=== PATIENT | female | born 1955 | race Caucasian/White ===

== ENCOUNTER 2016-07-28 11:41 | Emergency (ER) | payer OTHER ==
[2016-07-28] MEDS ORDERED: ACETAMINOPHEN 325 MG TABLET PO ONE (11:44)
--- NOTE | 2016-07-28 11:44 | ER Document Report ---
ED Medical Screen (RME) - General Stated Complaint: FLU LIKE SYMPTOMS Notes: Fever cough muscle aches since . I greeted and performed a rapid initial assessment of this patient. Comprehensive ED assessment and evaluation of the patient, analysis of test results and completion of the medical decision making process will be conducted by additional ED providers. - Related Data Allergies/Adverse Reactions: iodine [Iodine] Allergy (Verified 05/03/13 05:31) cefaclor [From Ceclor] Adverse Reaction (Verified 05/03/13 05:31) Past Medical History Neurological Medical History: Reports: Hx Migraine Psychiatric Medical History: Reports: Hx Depression
--- NOTE | 2016-07-28 12:35 | ER Document Report ---
ED Flu Like - General Chief Complaint: Flu Symptoms Stated Complaint: FLU LIKE SYMPTOMS Time seen by provider: 12:28 Mode of Arrival: Ambulatory Information source: Patient TRAVEL OUTSIDE OF THE [place] IN LAST 30 DAYS: No - HPI Patient complains to provider of: flu-like symptoms Onset: Other - pt. with 2 day h/o fever, generalized athralgias and myalgias, sore throat , and nausea with occasional cough - Related Data Allergies/Adverse Reactions: iodine [Iodine] Allergy (Verified 07/28/16 11:46) cefaclor [From Ceclor] Adverse Reaction (Verified 07/28/16 11:46) Past Medical History - General Information source: Patient - Social History Smoking Status: Current Every Day Smoker Cigarette use (# per day): Yes Chew tobacco use (# tins/day): No Frequency of alcohol use: None Drug Abuse: None Family History: Reviewed & Not Pertinent Patient has suicidal ideation: No Patient has homicidal ideation: No Neurological Medical History: Reports: Hx Migraine Renal/ Medical History: Denies: Hx Peritoneal Dialysis Psychiatric Medical History: Reports: Hx Depression Review of Systems - Review of Systems Constitutional: See HPI, Fever EENT: See HPI, Throat pain Cardiovascular: No symptoms reported Respiratory: See HPI, Cough Gastrointestinal: See HPI, Nausea -: Yes All other systems reviewed and negative Physical Exam - Vital signs Vitals: Temp Pulse Resp BP Pulse Ox 99.5 F 86 20 96/74 L 94 07/28/16 11:48 07/28/16 11:48 07/28/16 11:48 07/28/16 11:48 07/28/16 11:48 - General General appearance: Appears well In distress: None - HEENT Pharynx: Normal Neck: Normal - Respiratory Respiratory status: No respiratory distress Chest status: Nontender Breath sounds: Normal Chest palpation: Normal - Cardiovascular Rhythm: Regular Heart sounds: Normal auscultation - Abdominal Inspection: Normal Tenderness: Nontender Course - Vital Signs Vital signs: Temp Pulse Resp BP Pulse Ox 99.5 F 86 20 96/74 L 94 07/28/16 11:48 07/28/16 11:48 07/28/16 11:48 07/28/16 11:48 07/28/16 11:48 Discharge - Discharge Clinical Impression: Viral syndrome Condition: Stable Disposition: HOME, SELF-CARE Instructions: Acetaminophen, Fever ([facility]), Viral Syndrome ([facility]) Additional Instructions: rest, take meds as prescribed, return if worse Prescriptions: Hydrocodone/Chlorphen P-Stirex [Tussionex Pennkinetic Susp] 115 ml PO BID #100 wilton.er.12h Oseltamivir Phosphate [Tamiflu 75 mg Capsule] 75 mg PO BID #10 capsule Promethazine HCl [Phenergan 25 mg Tablet] 25 - 50 mg PO ASDIR PRN #12 tablet PRN Reason: Referrals: ALMA DELIA DANIEL MD [ACTIVE STAFF] - Follow up as needed
[2016-07-28 12:55] VITALS: BP 92/49
== END 2016-07-28 12:40 | disposition home or self-care (01) ==
LOC: ER 11:41
DX: R50.9 Fever, unspecified (principal); B34.9 Viral infection, unspecified; M79.1 Myalgia; R11.0 Nausea; R05 Cough; F17.210 Nicotine dependence, cigarettes, uncomplicated
CPT/HCPCS: 87804; 99283

== ENCOUNTER 2017-10-28 13:20 | Emergency (ER) | payer MEDICARE ==
[2017-10-28] MEDS ORDERED: ASPIRIN 325 MG TABLET PO ONE (14:16)
--- NOTE | 2017-10-28 14:25 | ER Document Report ---
ED Medical Screen (RME) - General Chief Complaint: Chest Pain Stated Complaint: CHEST PAIN Time Seen by Provider: 10/28/17 14:15 Notes: Patient states she woke up this morning with low back pain and she now has shortness of breath and heavy chest pressure. She denies any previous history of cardiac pathology. TRAVEL OUTSIDE OF THE [place] IN LAST 30 DAYS: No - Related Data Allergies/Adverse Reactions: iodine [Iodine] Allergy (Verified 07/28/16 11:46) cefaclor [From Ceclor] Adverse Reaction (Verified 07/28/16 11:46) Past Medical History - Social History Chew tobacco use (# tins/day): No Frequency of alcohol use: None Drug Abuse: None Neurological Medical History: Reports: Hx Migraine Renal/ Medical History: Denies: Hx Peritoneal Dialysis Psychiatric Medical History: Reports: Hx Depression Physical Exam - Vital signs Vitals: Temp Pulse Resp BP Pulse Ox 97.7 F 57 L 20 119/66 99 10/28/17 13:34 10/28/17 13:34 10/28/17 13:34 10/28/17 13:34 10/28/17 13:34 Course - Vital Signs Vital signs: Temp Pulse Resp BP Pulse Ox 97.7 F 57 L 20 119/66 99 10/28/17 13:34 10/28/17 13:34 10/28/17 13:34 10/28/17 13:34 10/28/17 13:34 Doctor's Discharge - Discharge Referrals: FE SALVADOR MD [Primary Care Provider] - Follow up as needed
[2017-10-28 14:46] LABS: ABSOLUTE EOSINOPHILS # (AUTO) 0.1 10^3/uL (0.0-0.6); ABSOLUTE LYMPHOCYTES (AUTO) 2.4 10^3/uL (0.5-4.7); ABSOLUTE MONOCYTES (AUTO) 0.7 10^3/uL (0.1-1.4); ABSOLUTE NEUT (AUTO) 9.8 10^3/uL (1.7-8.2); BASOPHILS % (AUTO) 0.3 % (0-2); EOSINOPHILS % (AUTO) 0.5 % (0-6); HEMATOCRIT 41.7 % (36.0-47.0); HEMOGLOBIN 14.2 g/dL (12.0-15.5); LYMPHOCYTES % (AUTO) 18.5 % (13-45); MEAN CORPUSCULAR HEMOGLOBIN 28.9 pg (27.0-33.4); MEAN CORPUSCULAR VOLUME 85 fl (80-97); MONOCYTES % (AUTO) 5.6 % (3-13); PLATELET COUNT 346 10^3/uL (150-450); RED CELL DISTRIBUTION WIDTH 13.7 % (11.5-14.0); SEGMENTED NEUTROPHILS % (AUTO) 75.1 % (42-78); TOTAL CELLS COUNTED % (AUTO) 100 %
[2017-10-28 14:51] LABS: ALANINE AMINOTRANSFERASE 22 U/L (9-52); ALBUMIN 4.5 g/dL (3.5-5.0); ALKALINE PHOSPHATASE 80 U/L (38-126); ANION GAP 12 (5-19); ASPARTATE AMINO TRANSFERASE 20 U/L (14-36); BILIRUBIN,DIRECT 0.3 mg/dL (0.0-0.4); BILIRUBIN,TOTAL 0.3 mg/dL (0.2-1.3); BLOOD UREA NITROGEN 11 mg/dL (7-20); CALCIUM 9.8 mg/dL (8.4-10.2); CARBON DIOXIDE 23 mmol/L (22-30); CHLORIDE 104 mmol/L (98-107); GLUCOSE 98 mg/dL (75-110); SODIUM 138.9 mmol/L (137-145)
--- NOTE | 2017-10-28 15:06 | EKG REPORT ---
SEVERITY:- BORDERLINE ECG - SINUS RHYTHM BORDERLINE T ABNORMALITIES, ANTERIOR LEADS BORDERLINE PROLONGED QT INTERVAL : Confirmed by: Smith Delgadillo 28-Oct-2017 15:06:11
--- NOTE | 2017-10-28 16:52 | RADIOLOGY REPORT (SQ) ---
EXAM DESCRIPTION: CHEST 2 VIEWS COMPLETED DATE/TIME: 10/28/2017 4:43 pm REASON FOR STUDY: cp COMPARISON: 05/03/2013. NUMBER OF VIEWS: Two view. TECHNIQUE: Frontal and lateral radiographic views of the chest acquired. LIMITATIONS: None. FINDINGS: LUNGS AND PLEURA: No opacities, masses or pneumothorax. No pleural effusion. Attenuated bl ood vessels and flattened angeles-diaphragms. MEDIASTINUM AND HILAR STRUCTURES: No masses. No contour abnormalities. HEART AND VASCULAR STRUCTURES: Heart normal in size and contour. No evidence for failure. BONES: No acute findings. HARDWARE: None in the chest. OTHER: No other significant finding. IMPRESSION: COPD. NO ACUTE RADIOGRAPHIC FINDING IN THE CHEST. TECHNICAL DOCUMENTATION: JOB ID: [id number] [employer]- All Rights Reserved Reading location - IP/workstation name: [email or web address]
[2017-10-28] MEDS ORDERED: LORAZEPAM INJ 2 MG/1 ML VIAL IV ONE (17:44)
[2017-10-28] MEDS ORDERED: NORMAL SALINE 1000 ML 1,000 ML IV ONE (17:44)
[2017-10-28 18:14] LABS: LIPASE 76.7 U/L (23-300)
--- NOTE | 2017-10-28 19:50 | ER Document Report ---
ED General - General Chief Complaint: Chest Pain Stated Complaint: CHEST PAIN Time Seen by Provider: 10/28/17 14:15 Mode of Arrival: Ambulatory Information source: Patient, Relative TRAVEL OUTSIDE OF THE [place] IN LAST 30 DAYS: No - HPI Patient complains to provider of: Low back pain, chest pain, anxiety Onset: This afternoon Onset/Duration: Sudden Quality of pain: Achy Severity: Moderate Pain Level: 3 Associated symptoms: Body/muscle aches, Chest pain, Nausea Notes: Patient is a 62-year-old female with a history of anxiety and depression, who is also a smoker, presenting to the emergency room complaining of low back pain that started this morning, has since radiated up into her ribs and her chest, states she was driving her car and felt very dizzy, like she could not drive, she points to the epigastric region when I asked her where her chest pain is, she also reports nausea and some diarrhea, patient does report increased family stressors which is causing her to have some increased anxiety recent he is well , she denies any cough, no shortness of breath, no dysuria or urinary frequency , no hematuria, no history of similar symptoms previously - Related Data Allergies/Adverse Reactions: iodine [Iodine] Allergy (Verified 07/28/16 11:46) cefaclor [From Ceclor] Adverse Reaction (Verified 07/28/16 11:46) Past Medical History - General Information source: Patient - Social History Smoking Status: Current Every Day Smoker Chew tobacco use (# tins/day): No Frequency of alcohol use: None Drug Abuse: None Family History: Reviewed & Not Pertinent Patient has suicidal ideation: No Patient has homicidal ideation: No Neurological Medical History: Reports: Hx Migraine Renal/ Medical History: Denies: Hx Peritoneal Dialysis Psychiatric Medical History: Reports: Hx Depression Past Surgical History: Reports: Hx Orthopedic Surgery - left arm Review of Systems - Review of Systems Constitutional: No symptoms reported EENT: No symptoms reported Cardiovascular: See HPI Respiratory: No symptoms reported Gastrointestinal: See HPI Genitourinary: No symptoms reported Female Genitourinary: No symptoms reported Musculoskeletal: See HPI Skin: No symptoms reported Hematologic/Lymphatic: No symptoms reported Neurological/Psychological: No symptoms reported -: Yes All other systems reviewed and negative Physical Exam - Vital signs Vitals: Temp Pulse Resp BP Pulse Ox 97.7 F 57 L 20 119/66 99 10/28/17 13:34 10/28/17 13:34 10/28/17 13:34 10/28/17 13:34 10/28/17 13:34 Interpretation: Normal - General General appearance: Appears well, Alert - HEENT Head: Normocephalic, Atraumatic Eyes: Normal Pupils: PERRL - Respiratory Respiratory status: No respiratory distress Chest status: Tender - Tenderness to palpate in the left anterior chest wall as well as the epigastric region Breath sounds: Normal Chest palpation: Normal - Cardiovascular Rhythm: Regular Heart sounds: Normal auscultation Murmur: No - Abdominal Inspection: Normal Distension: No distension Bowel sounds: Normal Tenderness: Tender - Epigastric Organomegaly: No organomegaly - Back Back: Normal, Nontender - Extremities General upper extremity: Normal inspection, Nontender, Normal color, Normal ROM , Normal temperature General lower extremity: Normal inspection, Nontender, Normal color, Normal ROM , Normal temperature, Normal weight bearing. No: Shawanda's sign - Neurological Neuro grossly intact: Yes Cognition: Normal Orientation: AAOx4 Jake Coma Scale Eye Opening: Spontaneous Bandera Coma Scale Verbal: Oriented Jake Coma Scale Motor: Obeys Commands Jake Coma Scale Total: 15 Speech: Normal Motor strength normal: LUE, RUE, LLE, RLE Sensory: Normal - Psychological Associated symptoms: Normal affect, Normal mood - Skin Skin Temperature: Warm Skin Moisture: Dry Skin Color: Normal Course - Re-evaluation Re-evalutation: 10/29/17 00:12 Lab and imaging findings unremarkable and discussed with patient and family members at bedside, she is agreeable to trying anti-anxiety medication in the department, since receiving IV Ativan she is sleeping comfortably, she was arousable and discharged home with , advised to follow-up with primary care or return if symptoms worsen, patient acknowledges understanding and agreement with this plan - Vital Signs Vital signs: Temp Pulse Resp BP Pulse Ox 97.7 F 57 L 18 128/66 H 93 10/28/17 13:34 10/28/17 13:34 10/28/17 20:07 10/28/17 20:07 10/28/17 20:07 - Laboratory Result Diagrams: 10/28/17 14:21 10/28/17 14:21 Laboratory results interpreted by me: 10/28/17 14:21 WBC 13.0 H Absolute Neutrophils 9.8 H - Diagnostic Test Radiology reviewed: Image reviewed, Reports reviewed Discharge - Discharge Clinical Impression: Anxiety Chest pain Qualifiers: Chest pain type: unspecified Qualified Code(s): R07.9 - Chest pain, unspecified Condition: Stable Disposition: HOME, SELF-CARE Instructions: Anxiety ([facility]), Chest Wall Pain ([facility]), Chest Pain of Unclear Cause ([facility]) Additional Instructions: Follow up with your primary care provider in one to 2 days. Return to the emergency room immediately if symptoms worsen or any additional concerns. Forms: Smoking Cessation Education Referrals: FE SALVADOR MD [Primary Care Provider] - Follow up as needed
[2017-10-28 20:49] VITALS: BP 128/66
== END 2017-10-28 20:10 | disposition home or self-care (01) ==
LOC: ER 13:20
DX: F41.9 Anxiety disorder, unspecified (principal); R07.9 Chest pain, unspecified; M54.5 Low back pain; M79.1 Myalgia; F17.200 Nicotine dependence, unspecified, uncomplicated
CPT/HCPCS: 93005; 99285; 96361; 96374; 36415; 83690; 80307; 85025; 80053; 84484; 71046; 93010; A9270; J2060; J7030

== ENCOUNTER 2017-10-29 13:38 | Inpatient (IN) | payer MEDICARE ==
[~2017-10-29 13:38] MED LIST: DEXAMETHASONE SOD PHOSPHATE INJ 4 MG/1 ML VIAL ONE; GLYCOPYRROLATE INJ 0.4 MG/2 ML VIAL ONE; NEOSTIGMINE METHYLSULFATE 10 MG/10 ML VIAL ONE; ONDANSETRON HCL INJ/PF 4 MG/2 ML SDV ONE; ROCURONIUM BROMIDE INJ 50 MG/5 ML VIAL IV ONE; SUCCINYLCHOLINE CHLORIDE INJ 200 MG/10 ML VIAL ONE
[2017-10-29] MEDS ORDERED: KETOROLAC TROMETHAMINE INJ/PF 30 MG/1 ML SDV IV ONE (14:29)
--- NOTE | 2017-10-29 14:29 | ER Document Report ---
ED Medical Screen (RME) - General Chief Complaint: Abdominal Pain Stated Complaint: RIGHT LOWER QUADRANT PAIN Time Seen by Provider: 10/29/17 14:23 Notes: Patient is a 62-year-old female who presents with worsening right flank and right lower quadrant abdominal pain with foul-smelling urine. She was seen in the ER yesterday for chest pain. PE: Uncomfortable. Tenderness over right lateral flank. I have greeted and performed a rapid initial assessment of this patient. A comprehensive ED assessment and evaluation of the patient, analysis of test results and completion of the medical decision making process will be conducted by additional ED providers. TRAVEL OUTSIDE OF THE [place] IN LAST 30 DAYS: No - Related Data Allergies/Adverse Reactions: iodine [Iodine] Allergy (Verified 07/28/16 11:46) cefaclor [From Ceclor] Adverse Reaction (Verified 07/28/16 11:46) Past Medical History Neurological Medical History: Reports: Hx Migraine Renal/ Medical History: Denies: Hx Peritoneal Dialysis Psychiatric Medical History: Reports: Hx Depression Past Surgical History: Reports: Hx Orthopedic Surgery - left arm Physical Exam - Vital signs Vitals: Temp Pulse Resp BP Pulse Ox 98.3 F 68 14 138/58 H 97 10/29/17 13:41 10/29/17 13:41 10/29/17 13:41 10/29/17 13:41 10/29/17 13:41 Course - Vital Signs Vital signs: Temp Pulse Resp BP Pulse Ox 98.3 F 68 14 138/58 H 97 10/29/17 13:41 10/29/17 13:41 10/29/17 13:41 10/29/17 13:41 10/29/17 13:41
[2017-10-29 15:29] LABS: ABSOLUTE BASOPHILS # (AUTO) 0.1 10^3/uL (0.0-0.2); ABSOLUTE LYMPHOCYTES (AUTO) 1.2 10^3/uL (0.5-4.7); ABSOLUTE NEUT (AUTO) 16.9 10^3/uL (1.7-8.2); BASOPHILS % (AUTO) 0.3 % (0-2); EOSINOPHILS % (AUTO) 0.2 % (0-6); HEMATOCRIT 43.7 % (36.0-47.0); HEMOGLOBIN 14.3 g/dL (12.0-15.5); LYMPHOCYTES % (AUTO) 6.4 % (13-45); MEAN CORPUSCULAR HEMOGLOBIN 28.3 pg (27.0-33.4); MEAN CORPUSCULAR HGB CONC 32.7 g/dL (32.0-36.0); MEAN CORPUSCULAR VOLUME 87 fl (80-97); MONOCYTES % (AUTO) 5.1 % (3-13); PLATELET COUNT 349 10^3/uL (150-450); RED BLOOD COUNT 5.05 10^6/uL (3.72-5.28); RED CELL DISTRIBUTION WIDTH 13.7 % (11.5-14.0); TOTAL CELLS COUNTED % (AUTO) 100 %; WHITE BLOOD COUNT 19.3 10^3/uL (4.0-10.5)
--- NOTE | 2017-10-29 15:50 | ER Document Report ---
ED General - General Chief Complaint: Abdominal Pain Stated Complaint: RIGHT LOWER QUADRANT PAIN Time Seen by Provider: 10/29/17 14:23 Mode of Arrival: Ambulatory Information source: Patient Notes: This is a 62-year-old female presents to the emergency room with acute lower abdominal pain. Patient states the pain was mostly in the chest and back yesterday and she was evaluated in the ER and that the pain has gotten worse. She is not eating or drinking in the past 2 days. TRAVEL OUTSIDE OF THE [place] IN LAST 30 DAYS: No - HPI Onset: Just prior to arrival Onset/Duration: Gradual Quality of pain: Dull Severity: Moderate Pain Level: 3 Associated symptoms: Nausea, Vomiting Exacerbated by: Denies Relieved by: Denies Similar symptoms previously: No Recently seen / treated by doctor: No - Related Data Allergies/Adverse Reactions: iodine [Iodine] Allergy (Verified 07/28/16 11:46) cefaclor [From Ceclor] Adverse Reaction (Verified 07/28/16 11:46) Home Medications: hydrozyzine, lamotrigine, viscous lidocaine, memantine, setraline, trazadone. Past Medical History - General Information source: Patient - Social History Smoking Status: Never Smoker Cigarette use (# per day): No Chew tobacco use (# tins/day): No Frequency of alcohol use: None Drug Abuse: None Lives with: Family Family History: Reviewed & Not Pertinent Patient has suicidal ideation: No Patient has homicidal ideation: No Neurological Medical History: Reports: Hx Migraine Renal/ Medical History: Denies: Hx Peritoneal Dialysis Psychiatric Medical History: Reports: Hx Depression Past Surgical History: Reports: Hx Orthopedic Surgery - left arm Review of Systems - Review of Systems Constitutional: denies: Chills, Fever EENT: No symptoms reported Cardiovascular: No symptoms reported Respiratory: No symptoms reported Gastrointestinal: See HPI Genitourinary: No symptoms reported Female Genitourinary: No symptoms reported Musculoskeletal: No symptoms reported Skin: No symptoms reported Hematologic/Lymphatic: No symptoms reported Neurological/Psychological: No symptoms reported Physical Exam - Vital signs Vitals: Temp Pulse Resp BP Pulse Ox 98.3 F 68 14 138/58 H 97 10/29/17 13:41 10/29/17 13:41 10/29/17 13:41 10/29/17 13:41 10/29/17 13:41 Notes: Physical exam: GENERAL: 62-year-old female, alert and oriented 3, appears ill and dehydrated HEAD: Atraumatic, normocephalic. EYES: Pupils equal round and reactive to light, extraocular movements intact, sclera anicteric, conjunctiva are normal. ENT: TMs normal, nares patent, oropharynx clear without exudates. Dry mucous membranes. NECK: Normal range of motion, supple without obvious mass or JVD. LUNGS: Breath sounds clear to auscultation bilaterally and equal. No wheezes rales or rhonchi. HEART: Regular rate and rhythm without murmurs, rubs or gallops. ABDOMEN: Soft, hypoactive bowel sounds. Patient is tender with rebound in the lower right quadrant. EXTREMITIES: Normal range of motion, no pitting or edema. No clubbing or cyanosis. NEUROLOGICAL: Cranial nerves II through XII grossly intact. Normal speech, moving all extremities. PSYCH: Normal mood, normal affect. SKIN: Warm, Dry, normal turgor, no rashes or lesions noted. Course - Re-evaluation Re-evalutation: 10/29/17 16:17 Dr. Champagne notified: Patient is ruptured appendix. IV levofloxacin and Flagyl being started. IV fluids running. Patient's is Fede: [phone] - Vital Signs Vital signs: Temp Pulse Resp BP Pulse Ox 97.4 F 68 30 H 122/75 92 10/29/17 19:00 10/29/17 13:41 10/29/17 20:00 10/29/17 20:51 10/29/17 20:00 - Laboratory Result Diagrams: 10/29/17 14:55 10/29/17 14:55 Laboratory results interpreted by me: 10/29/17 10/29/17 10/29/17 14:55 14:55 14:55 WBC 19.3 H Seg Neutrophils % 88.0 H Lymphocytes % 6.4 L Absolute Neutrophils 16.9 H APTT 37.0 H Glucose 120 H Urine Ketones Urine Nitrite Ur Leukocyte Esterase 10/29/17 17:55 WBC Seg Neutrophils % Lymphocytes % Absolute Neutrophils APTT Glucose Urine Ketones 20 H Urine Nitrite POSITIVE H Ur Leukocyte Esterase TRACE H - Diagnostic Test Radiology reviewed: Image reviewed, Reports reviewed - Right basilar consolidation: Reported as atelectasis versus pneumonia - EKG Interpretation by Me Rate: Normal Rhythm: NSR - EKG shows normal sinus rhythm with a ventricular rate of 77, no acute ST-T wave changes Discharge - Discharge Clinical Impression: Acute appendicitis with localized peritonitis Condition: Stable Disposition: ADMITTED INPATIENT Admitting Provider: Surgicalist - Dr. Champagne Unit Admitted: Surgical Floor
[2017-10-29] MEDS ORDERED: RINGERS SOLUTION,LACTATED 1,000 ML IV ONE ×2 (15:51→16:11)
[2017-10-29] MEDS ORDERED: ONDANSETRON HCL INJ/PF 4 MG/2 ML SDV IV ONE (15:52)
[2017-10-29 15:54] LABS: ALANINE AMINOTRANSFERASE 25 U/L (9-52); ALBUMIN 4.4 g/dL (3.5-5.0); ALKALINE PHOSPHATASE 88 U/L (38-126); ANION GAP 13 (5-19); ASPARTATE AMINO TRANSFERASE 20 U/L (14-36); BILIRUBIN,DIRECT 0.4 mg/dL (0.0-0.4); BILIRUBIN,TOTAL 0.5 mg/dL (0.2-1.3); BLOOD UREA NITROGEN 8 mg/dL (7-20); CALCIUM 9.5 mg/dL (8.4-10.2); CARBON DIOXIDE 24 mmol/L (22-30); CHLORIDE 102 mmol/L (98-107); GLUCOSE 120 mg/dL (75-110); POTASSIUM 4.1 mmol/L (3.6-5.0); SODIUM 138.6 mmol/L (137-145); TOTAL PROTEIN 6.8 g/dL (6.3-8.2)
[2017-10-29] MEDS ORDERED: LEVOFLOXACIN 750 MG/D5W RTU 750 MG/150 ML RTUPB IV ONE ×2 (16:10→23:00)
[2017-10-29] MEDS ORDERED: METRONIDAZOLE 500 MG/NS RTU 100 ML IV ONE ×2 (16:11→23:45)
--- NOTE | 2017-10-29 16:16 | RADIOLOGY REPORT (SQ) ---
EXAM DESCRIPTION: CT LTD RENAL STONE PROTOCOL ON COMPLETED DATE/TIME: 10/29/2017 4:00 pm REASON FOR STUDY: acute abdominal pain COMPARISON: None. TECHNIQUE: CT scan of the abdomen and pelvis performed without intravenous or oral contrast. Images reviewed with lung, soft tissue, and bone windows. Reconstructed coronal and sagittal MPR images revi ewed. All images stored on PACS. All CT scanners at this facility use dose modulation, iterative reconstruction, and/or weight based d osing when appropriate to reduce radiation dose to as low as reasonably achievable (ALARA). [facility]: Dose Right [facility]: CareDose [facility]: Dose Right [facility]: Teradose 4D [facility]: Smart [employer] RADIATION DOSE: CT Rad equipment meets quality standard of care and radiation dose reduction techniq ues were employed. CTDIvol: 8.3 mGy. DLP: 428 mGy-cm.mGy. LIMITATIONS: None. FINDINGS: In the right lower quadrant, an inflamed perforated appendix is present containing an appe ndicolith. There is surrounding stranding in the adjacent periappendiceal fat without well-circumscr ibed abscess. These findings are best shown on axial images 44 through 56, and coronal images 14 thr ough 22. This report was called to Dr. Eaton in the emergency room, 1600 hours 10/29/2017. LOWER CHEST: Consolidation in the right lower lobe, atelectasis versus pneumonia. No right pleural e ffusion. Minimal atelectasis left posterior costophrenic sulcus. Small hiatal hernia. NON-CONTRASTED LIVER, SPLEEN, ADRENALS: Evaluation limited by lack of IV contrast. No identified sign ificant masses. PANCREAS: No masses. No peripancreatic inflammatory changes. GALLBLADDER: Gallstones. No inflammatory changes to suggest cholecystitis. RIGHT KIDNEY AND URETER: No suspicious masses. Assessment limited by lack of IV contrast. No signif icant calcifications. No hydronephrosis or hydroureter. LEFT KIDNEY AND URETER: No suspicious masses. Assessment limited by lack of IV contrast. No signifi cant calcifications. No hydronephrosis or hydroureter. AORTA AND RETROPERITONEUM: No aneurysm. No retroperitoneal masses or adenopathy. BOWEL AND PERITONEAL CAVITY: No bowel obstruction. Tiny amount of right lower quadrant free air rela jose to perforated appendix with surrounding periappendiceal inflammation as above. No pelvic cul-de- sac fluid. APPENDIX: As above PELVIS, BLADDER, AND ABDOMINAL WALL:Pessary in the vagina. Normal size postmenopausal female pelvic organs. No bulky pelvic adenopathy. Bladder decompressed. BONES: No significant findings. OTHER: No other significant finding. IMPRESSION: Perforated appendix with an appendicolith. Surrounding inflammatory change in the peria ppendiceal fat without abscess. Small amount of right lower quadrant free intraperitoneal air COMMENT: Pertinent findings on the imaging study reported as a CRITICAL RESULT to CHELA HICKEY at 16:00 on 10/29/2017. Category of Critical Result: PERFORATED APPENDIX Quality ID # [id number]: Final reports with documentation of one or more dose reduction techniques (e.g., Au tomated exposure control, adjustment of the mA and/or kV according to patient size, use of iterative reconstruction technique) TECHNICAL DOCUMENTATION: JOB ID: [id number] [employer]- All Rights Reserved Reading location - IP/workstation name: [email or web address]
--- NOTE | 2017-10-29 16:19 | RADIOLOGY REPORT (SQ) ---
EXAM DESCRIPTION: CHEST SINGLE VIEW COMPLETED DATE/TIME: 10/29/2017 4:11 pm REASON FOR STUDY: Poss Free Air COMPARISON: CT abdomen pelvis same date Two-view chest 10/28/2017 EXAM PARAMETERS: NUMBER OF VIEWS: One view. TECHNIQUE: Single frontal radiographic view of the chest acquired. RADIATION DOSE: NA LIMITATIONS: None. FINDINGS: LUNGS AND PLEURA: CT abdomen pelvis demonstrates trace right lower quadrant free intraperi toneal air related to a ruptured appendix. This is not apparent by today's plain film of the chest There is right basilar consolidation atelectasis versus pneumonia. No pleural effusions. No pneumothorax. Upper lobes are hyperlucent from obstructive disease. MEDIASTINUM AND HILAR STRUCTURES: No masses. Contour normal. HEART AND VASCULAR STRUCTURES: Heart normal in size. Normal vasculature. BONES: No acute findings. HARDWARE: None in the chest. OTHER: No other significant finding. IMPRESSION: Right basilar consolidation atelectasis versus pneumonia Obstructive lung disease TECHNICAL DOCUMENTATION: JOB ID: [id number] [employer]- All Rights Reserved Reading location - IP/workstation name: [email or web address]
[2017-10-29 16:35] LABS: INTERNATIONAL RATION (INR) 1.03
[2017-10-29 18:14] LABS: APPEARANCE,URINE CLEAR; BILIRUBIN,URINE NEGATIVE (NEGATIVE); COLOR,URINE YELLOW; GLUCOSE, URINE NEGATIVE (NEGATIVE); KETONES,URINE 20 mg/dL (NEGATIVE); LEUKOCYTE ESTERASE,URINE TRACE (NEGATIVE); NITRITE,URINE POSITIVE (NEGATIVE); PROTEIN,URINE NEGATIVE (NEGATIVE); URINE SPECIFIC GRAVITY 1.014; UROBILINOGEN,URINE NEGATIVE mg/dL (<2.0)
[2017-10-29] MEDS ORDERED: BUPIVACAINE HCL 0.5%-EPI 1:200000 INJ/PF 30 ML VIAL ONE (19:12)
--- NOTE | 2017-10-29 19:25 | PDOC H&P ---
History of Present Illness Admission Date/PCP: 10/29/17 18:22 FE SALVADOR MD Patient complains of: Abdominal pain History of Present Illness: MEENA GONZALEZ is a 62 year old female who presents to the Er with a c/o abdominal pain since yesterday. A CT scan A/P was done revealing a perforated appendicitis as free fluid and few bubbles of free air are indentified. Past Medical History Neurological Medical History: Reports: Migraine Psychiatric Medical History: Reports: Depression Past Surgical History Past Surgical History: Reports: Orthopedic Surgery - left arm Social History Smoking Status: Never Smoker Frequency of Alcohol Use: Rare Hx Recreational Drug Use: No Family History Family History: Reviewed & Not Pertinent Parental Family History Reviewed: No Children Family History Reviewed: No Sibling(s) Family History Reviewed.: No Medication/Allergy Home Medications: Hydroxyzine Pamoate 1 cap PO DAILY 10/28/17 Lamotrigine [Lamotrigine] 200 mg PO DAILY 10/28/17 Memantine HCl [Memantine HCl] 1 tab PO BID 10/28/17 Sertraline HCl [Sertraline HCl] 1 tab PO DAILY 10/28/17 Trazodone HCl 150 mg PO QHS 10/28/17 Allergies/Adverse Reactions: iodine [Iodine] Allergy (Verified 07/28/16 11:46) cefaclor [From Ceclor] Adverse Reaction (Verified 07/28/16 11:46) Physical Exam Vital Signs: Temp Pulse Resp BP Pulse Ox 98.3 F 68 29 H 138/58 H 90 L 10/29/17 13:41 10/29/17 13:41 10/29/17 18:00 10/29/17 13:41 10/29/17 18:00 General appearance: PRESENT: mild distress Head exam: PRESENT: atraumatic Eye exam: PRESENT: EOMI Mouth exam: PRESENT: dry mucosa Neck exam: PRESENT: full ROM Respiratory exam: PRESENT: clear to auscultation aramis Cardiovascular exam: PRESENT: RRR GI/Abdominal exam: PRESENT: hypoactive bowel sounds, rebound - in the right lower quadrant;, tenderness Extremities exam: PRESENT: full ROM Musculoskeletal exam: PRESENT: full ROM Neurological exam: PRESENT: alert, awake Results Impressions: Chest X-Ray 10/29/17 15:50 IMPRESSION: Right basilar consolidation atelectasis versus pneumonia Obstructive lung disease Limited or Localized CT 10/29/17 15:50 IMPRESSION: Perforated appendix with an appendicolith. Surrounding inflammatory change in the periappendiceal fat without abscess. Small amount of right lower quadrant free intraperitoneal air Assessment & Plan - Diagnosis (1) Acute perforated appendicitis Is this a current diagnosis for this admission?: Yes - Plan Summary Plan Summary: A/ Acute perforated appendicitis Leukocytosis P/ Emergent laparoscopic, possible open appendectomy IVF preop IV Levaquin/Flagyl preop Preop EKG Procedure, risks, benefits, complications explained to the patient, she understands all of them and decides to proceed
--- NOTE | 2017-10-29 21:02 | EKG REPORT ---
SEVERITY:- ABNORMAL ECG - SINUS RHYTHM NONSPECIFIC REPOL ABNORMALITY, DIFFUSE LEADS : Confirmed by: Smith Delgadillo 29-Oct-2017 21:01:47
[2017-10-29] MEDS ORDERED: FENTANYL CITRATE INJ/PF 100 MCG/2 ML AMPUL ONE (21:05)
[2017-10-29] MEDS ORDERED: MIDAZOLAM 2 MG/2 ML INJ ONE (21:06)
[2017-10-29] MEDS ORDERED: PROPOFOL INJ 200 MG/20 ML VIAL IV ONE (21:06)
[2017-10-29] MEDS ORDERED: MORPHINE SULFATE 10 MG/ML INJ ONE (21:19)
[2017-10-29] MEDS ORDERED: DIPHENHYDRAMINE HCL 50 MG/ML VIAL IV PRN (22:16)
[2017-10-29] MEDS ORDERED: MEPERIDINE HCL/PF INJ 25 MG/1 ML DISP.SYRIN IV PRN (22:16)
[2017-10-29] MEDS ORDERED: FENTANYL CITRATE INJ/PF 100 MCG/2 ML AMPUL IV PRN ×3 (22:16)
[2017-10-29] MEDS ORDERED: PROMETHAZINE HCL INJ 25 MG/1 ML VIAL IV PRN ×2 (22:16)
--- NOTE | 2017-10-29 23:03 | Operative Report ---
Nonrecallable Operative Report DATE OF SURGERY: 10/29/17 PREOPERATIVE DIAGNOSIS: perforated acute appendicitis POSTOPERATIVE DIAGNOSIS: same OPERATION: laparoscopic appendectomy SURGEON: DESTIN JEFFRIES ANESTHESIA: GA - plus 10 mL 05% lidicaine with epi TISSUE REMOVED OR ALTERED: appendix COMPLICATIONS: none ESTIMATED BLOOD LOSS: <5 ml INTRAOPERATIVE FINDINGS: acute, perforated appendicitis with purulent material in the RLQ PROCEDURE: see dictation
[2017-10-29] MEDS ORDERED: NORMAL SALINE 1000 ML 1,000 ML IV PRN (23:52)
[2017-10-29] MEDS ORDERED: ONDANSETRON HCL INJ/PF 4 MG/2 ML SDV IV PRN (23:53)
[2017-10-29] MEDS ORDERED: MORPHINE SULFATE 10 MG/ML INJ IV PRN (23:53)
--- NOTE | 2017-10-30 00:01 | RADIOLOGY REPORT (SQ) ---
EXAM DESCRIPTION: CHEST SINGLE VIEW COMPLETED DATE/TIME: 10/29/2017 11:50 pm REASON FOR STUDY: NGT PLACEMENT COMPARISON: 10/29/2017 EXAM PARAMETERS: NUMBER OF VIEWS: One view. TECHNIQUE: Single frontal radiographic view of the chest acquired. RADIATION DOSE: NA LIMITATIONS: None. FINDINGS: LUNGS AND PLEURA: New Moderate consolidation in the left medial lung base and parahilar re gion. Similar chronic interstitial markings and emphysema. No pneumothorax. No significant effusio n. MEDIASTINUM AND HILAR STRUCTURES: Stable. HEART AND VASCULAR STRUCTURES: Stable. BONES: No acute findings. HARDWARE: NG tube present with tip beyond the inferior margin of the image, side port noted over the body of the stomach. OTHER: Soft tissue gas noted in the right chest wall -breast, correlate with clinical history. IMPRESSION: New Moderate consolidation in the left medial lung base and parahilar region. Soft tissu e gas noted in the right chest wall -breast, correlate with clinical history. NG tube present with t ip beyond the inferior margin of the image, side port noted over the body of the stomach. TECHNICAL DOCUMENTATION: JOB ID: [id number] [id number] 2010 [employer]- All Rights Reserved Reading location - IP/workstation name: [facility]
[2017-10-30] MEDS: NALOXONE HCL INJ/PF 0.4 MG/1 ML SDV ONE ×4 (00:15→00:27)
--- NOTE | 2017-10-30 00:20 | OPERATIVE REPORT E ---
Operative Report NAME: MEENA GONZALEZ : 1955 AGE: 62Y DATE OF SURGERY: 10/29/2017 ROOM: ED07 PREOPERATIVE DIAGNOSIS: PERFORATED APPENDICITIS, ACUTE TYPE. POSTOPERATIVE DIAGNOSIS: PERFORATED APPENDICITIS, ACUTE TYPE. OPERATION: Laparoscopic appendectomy. SURGEON: DESTIN JEFFRIES M.D. CHIEF CLIENT OFFICER: None. ANESTHESIA: General. ESTIMATED BLOOD LOSS: Less than 10 mL. COMPLICATIONS: None. URINE OUTPUT: Not available. FLUIDS: 700. DRAINS: One 15-mm Nikolai-Delgadillo drain. INDICATION AND FINDINGS: This is a 62-year-old female with a history of abdominal pain for a few days, intense nausea, emesis, found to have an acute appendicitis, perforated, on CAT scan. White blood cell count was about 19,000. Decision was made to take the patient to surgery to undergo laparoscopic appendectomy, possible open; procedure. Risks, benefits and complications explained to the patient. The consent was signed and she decided to proceed. PROCEDURE: The procedure was done in the operating room. Patient was placed in supine position. General anesthesia was induced by endotracheal intubation. Dent catheter was already inserted in the emergency room. Nasogastric tube was inserted afterwards. The abdomen was prepped and draped in the usual fashion. A small incision was made just above the umbilicus, and a 5-mm port with Optiview adapter and scope was inserted through the abdominal wall into the peritoneal cavity. A CO2 pneumoperitoneum was then established. Following this, a 5-mm port was inserted in the right upper quadrant of the abdomen and the 5-mm port through the umbilicus was removed and replaced with a 20-mm port. The 5-mm port was reinserted in the left lower quadrant of the abdomen. The patient was placed in a Trendelenburg position, with right side elevated. Right side was then explored. The cecum was identified and the anterior tenia was identified and followed distally until the base of the appendix was identified. The appendix was then grasped and gently dissected off the cecum, as it was partially retrocecal, until it was fully dissected. It was then stretched and the mesoappendix was then divided with a LigaSure until the base of the appendix was skeletonized. This was then stapled with a laparoscopic stapler. The appendix was extracted from the peritoneal cavity with an Endo bag. CO2 pneumoperitoneum was reestablished. The peritoneal cavity was then inspected. There was a small amount of purulent material identified in the right lower quadrant. This was aspirated and sent for culture; aerobic, anaerobic and gram stain. The peritoneal cavity was then fully irrigated with 3 liters of normal saline, which was completely aspirated until clear. Under direct visualization, using a fascia closure device, an 0 Vicryl [id number] suture was used to close the umbilical fascia defect, and the suture was left untied. Under direct visualization, a 15-mm flat Nikolai-Delgadillo drain was inserted through the umbilical port and extracted through the left lower quadrant port site, and placed in the right lower quadrant, in the area of the appendix. At that point, the patient was placed in a flat position. All instruments were removed. The CO2 was released. The ports were removed. The drain was secured in place with 3-0 nylon suture. The fascial defect in the umbilicus was closed with the previously placed 0 Vicryl suture. The rest of the incisions were closed with subcuticular 4-0 Vicryl suture. Dermabond was then applied. The patient tolerated the procedure well, extubated and transferred to the recovery room in satisfactory condition. DICTATING PHYSICIAN: DESTIN JEFFRIES M.D. [id number] PHY#: [id number] ID: [id number] JOB#: [id number] ACCT: [id number] cc:DESTIN JEFFRIES M.D. > MTDD
[2017-10-30] MEDS ORDERED: METRONIDAZOLE 500 MG/NS RTU 100 ML IV ONE (00:57)
[2017-10-30] MEDS ORDERED: ACETAMINOPHEN 100 ML IV PRN (01:00)
[2017-10-30] MEDS ORDERED: KETOROLAC TROMETHAMINE INJ/PF 30 MG/1 ML SDV IV PRN (01:00)
[2017-10-30] MEDS ORDERED: FLUMAZENIL INJ 0.5 MG/5 ML VIAL ONE (01:55)
[2017-10-30] MEDS ORDERED: FLUMAZENIL INJ 0.5 MG/5 ML VIAL IV ONE (02:30)
[2017-10-30] MEDS: METRONIDAZOLE 500 MG/NS RTU 100 ML IV SCH ×3 (06:48→21:53)
[2017-10-30 06:53] LABS: ANION GAP 9 (5-19); BLOOD UREA NITROGEN 9 mg/dL (7-20); CALCIUM 8.3 mg/dL (8.4-10.2); CARBON DIOXIDE 23 mmol/L (22-30); CHLORIDE 104 mmol/L (98-107); GLUCOSE 110 mg/dL (75-110); POTASSIUM 3.8 mmol/L (3.6-5.0); SODIUM 136.2 mmol/L (137-145)
[2017-10-30 07:03] LABS: HEMATOCRIT 33.8 % (36.0-47.0); MEAN CORPUSCULAR HEMOGLOBIN 28.9 pg (27.0-33.4); MEAN CORPUSCULAR HGB CONC 33.7 g/dL (32.0-36.0); MEAN CORPUSCULAR VOLUME 86 fl (80-97); PLATELET COUNT 239 10^3/uL (150-450); RED BLOOD COUNT 3.95 10^6/uL (3.72-5.28); RED CELL DISTRIBUTION WIDTH 13.1 % (11.5-14.0)
[2017-10-30 07:21] LABS: HEMOGLOBIN 11.4 g/dL (12.0-15.5); WHITE BLOOD COUNT 24.4 10^3/uL (4.0-10.5)
[2017-10-30] MEDS ORDERED: NORMAL SALINE 1000 ML 1,000 ML IV ONE (09:02)
--- NOTE | 2017-10-30 09:11 | PDOC PROGRESS REPORT ---
Subjective Progress Note for:: 10/30/17 Subjective:: Patient looks very sluggish and sleepy, responds appropriately to questions and she is coherent Reason For Visit: ACUTE APPENDICITIS WITH LOCALIZED PERITO Physical Exam Vital Signs: Temp Pulse Resp BP Pulse Ox 98.2 F 59 L 16 103/44 L 99 10/30/17 03:05 10/30/17 07:00 10/30/17 03:05 10/30/17 03:05 10/30/17 05:12 Pulse Oximeter Continuous Start: 10/30/17 05: 12 Freq: Status: Active Document 10/30/17 05:12 EAL (Rec: 10/30/17 05:13 EAL [email or web address]) Pulse Oximetry Assessment Oxygen Saturation (92-100) 99 Oxygen Flow Rate (L/min) 15 Oxygen Delivery Method Non-Rebreather Equipment Usage Initial Set Up Continuous Pulse Oximeter 24 Hour Charge Charge Now Continuous SpO2 Machine # 8 Intake & Output 10/29/17 10/30/17 10/31/17 06:59 06:59 06:59 Intake Total 6527 Output Total 535 Balance 5992 Weight 66.7 kg General appearance: PRESENT: other - sleepy by arousable Respiratory exam: PRESENT: chest wall tenderness Cardiovascular exam: PRESENT: RRR GI/Abdominal exam: PRESENT: soft, other - no bowel sounds; ANTONY drain oin the LLQ with serous fluid Results Laboratory Results: 10/30/17 06:04 10/30/17 06:04 10/30/17 10/30/17 06:04 06:04 WBC 24.4 H RBC 3.95 Hgb 11.4 L D Hct 33.8 L MCV 86 MCH 28.9 MCHC 33.7 RDW 13.1 Plt Count 239 Sodium 136.2 L Potassium 3.8 Chloride 104 Carbon Dioxide 23 Anion Gap 9 BUN 9 Creatinine 0.54 Est GFR ( Amer) > 60 Est GFR (Non-Af Amer) > 60 Glucose 110 Calcium 8.3 L Impressions: Chest X-Ray 10/29/17 15:50 IMPRESSION: Right basilar consolidation atelectasis versus pneumonia Obstructive lung disease Limited or Localized CT 10/29/17 15:50 IMPRESSION: Perforated appendix with an appendicolith. Surrounding inflammatory change in the periappendiceal fat without abscess. Small amount of right lower quadrant free intraperitoneal air Assessment & Plan - Diagnosis (1) Acute perforated appendicitis Is this a current diagnosis for this admission?: Yes - Plan Summary Plan Summary: A/ POD #1 after laparoscopic appendectomy for ruptured appendicitis VSS, AF Patient appears sleepy, most likely secondary to the effect of GA and postop meds, slowly wearing off Marginal OU (235 ml since surgery) high ANTONY output, most likely due to irrigation fluid plus peritonitis Leukocytosis (24k), both reactive postsurgical and infectious in origin P/ No narcotics, Toradol only for pain Continue Dent, NGT, NPO NS 1,000 mL bolus x 1 Continue Levaquin/Flagyl Waiting for intraop cx results
[2017-10-30] MEDS: FAMOTIDINE INJ/PF 20 MG/2 ML SDV IV SCH ×2 (10:50→17:37)
[2017-10-30] MEDS: KETOROLAC TROMETHAMINE INJ/PF 30 MG/1 ML SDV IV PRN ×2 (14:26→21:52)
[2017-10-30] MEDS ORDERED: LEVOFLOXACIN 750 MG/D5W RTU 750 MG/150 ML RTUPB IV SCH ×2 (18:00→22:00)
[2017-10-31] MEDS: METRONIDAZOLE 500 MG/NS RTU 100 ML IV SCH ×2 (05:39→14:27)
[2017-10-31 05:44] LABS: HEMATOCRIT 34.2 % (36.0-47.0); HEMOGLOBIN 11.3 g/dL (12.0-15.5); MEAN CORPUSCULAR HEMOGLOBIN 28.6 pg (27.0-33.4); MEAN CORPUSCULAR VOLUME 87 fl (80-97); PLATELET COUNT 235 10^3/uL (150-450); RED BLOOD COUNT 3.95 10^6/uL (3.72-5.28); RED CELL DISTRIBUTION WIDTH 13.5 % (11.5-14.0); WHITE BLOOD COUNT 12.2 10^3/uL (4.0-10.5)
[2017-10-31 05:55] LABS: ANION GAP 9 (5-19); BLOOD UREA NITROGEN 9 mg/dL (7-20); CALCIUM 8.4 mg/dL (8.4-10.2); CARBON DIOXIDE 23 mmol/L (22-30); CHLORIDE 110 mmol/L (98-107); GLUCOSE 71 mg/dL (75-110); POTASSIUM 4.4 mmol/L (3.6-5.0)
[2017-10-31] MEDS: KETOROLAC TROMETHAMINE INJ/PF 30 MG/1 ML SDV IV PRN (07:52)
[2017-10-31] MEDS: FAMOTIDINE INJ/PF 20 MG/2 ML SDV IV SCH (10:30)
[2017-10-31 17:33] VITALS: BP 122/75
--- NOTE | 2017-10-31 21:20 | DISCHARGE SUMMARY E ---
Discharge Summary NAME: MEENA GONZALEZ : 1955 AGE: 62Y ADMITTED: 10/29/2017 DISCHARGED: 10/31/2017 FINAL DIAGNOSIS: Perforated acute appendicitis. PROCEDURE DONE: Laparoscopic appendectomy, date 10/29/17, surgeon Dr. Champagne. SUMMARY: This is a 62-year-old female complaining of abdominal pains a day prior to admission. She then had a CT scan of the abdomen on 10/29/17, which showed a perforated acute appendicitis. The patient underwent laparoscopic appendectomy on 10/29/[address] Champagne. Postoperatively the patient continued on IV antibiotics and her bowel functions gradually improved with passage of flatus and bowel movement on the day of discharge. Her white count also went down to 12,000 on the day of discharge and she has been afebrile. Drains also removed on the day of discharge. Her abdomen was soft and nontender and all the incisions are noted to be clean and dry. She was discharged on p.o. Cipro 500 mg p.o. twice a day and Flagyl 500 mg p.o. three times a day for the next 5 days. The patient advised not to do any lifting more than 10-15 pounds for the next 2 weeks. The patient also arranged for follow up with the surgical clinic in 2 weeks. A note to go back to work was give, to return to work in 2-3 weeks. For any fever or vomiting or chills patient to come back to the emergency room. DICTATING PHYSICIAN: RADHA LI M.D. [id number] Y#: [id number] ID: [id number] JOB#: [id number] ACCT: [id number] cc:Leslie ARELLANO M.D. >
== END 2017-10-31 17:52 | disposition home or self-care (01) | DRG 340 ==
LOC: ER 13:38 → EH 18:22 → 3W 10-30 02:59
PROVIDERS: ADMIT Surgery; ATTEND Surgery
PROC: 0DTJ4ZZ Resection of Appendix, Percutaneous Endoscopic Approach (ICD-10-PCS; principal; 2017-10-29 18:15)
DX: K35.3 Acute appendicitis with localized peritonitis (principal); D72.829 Elevated white blood cell count, unspecified; F32.9 Major depressive disorder, single episode, unspecified; G43.909 Migraine, unspecified, not intractable, without status migrainosus
CPT/HCPCS: 36415; 71045; 71046; 76380; 80048; 80053; 80307; 81001; 83605; 83690; 840; 84484; 85025; 85027; 85610; 85730; 87040; 87070; 87075; 87077; 87186; 87205; 93005; 93010; 94762; 94799; 96365; 96366; 96368; 96375; 99285; J0330; J1100; J1885; J1956; J2250; J2270; J2310; J2405; J2704; J3010; J3490; J7030; J7120; S0028